=== PATIENT | male | born 1995 | race Caucasian/White ===

== ENCOUNTER 2019-10-02 11:06 | Emergency (ER) | payer OTHER ==
--- NOTE | 2019-10-02 11:48 | EDM.PDOC ---
ED HPI GENERAL MEDICAL PROBLEM - General Chief Complaint: Lower Extremity Injury/Pain Stated Complaint: RIGHT KNEE INJURY Time Seen by Provider: 10/02/19 11:07 Source of Information: Reports: Patient, Family History Limitations: Reports: No Limitations - History of Present Illness INITIAL COMMENTS - FREE TEXT/NARRATIVE: Patient presents with a right knee injury. He was working Last night and he got his right knee caught between 2 Perez when the cow pushed into it causing him to have a deep bruising and injury to the knee. Initially is able to walk on it however overnight he has iced it elevated and again ibuprofen however more bruising noted and is more swollen. He can't fully bend or fully extend his knee. Otherwise no other injury associated with it. No history of any past knee problems. Other than orthopedic type injuries patient has been healthy. Onset: Sudden Onset Date: 10/01/19 Duration: Day(s):, Getting Worse Location: Reports: Upper Extremity, Right Quality: Reports: Ache Severity: Moderate Improves with: Reports: Cold Therapy Worsens with: Reports: Movement Context: Reports: Activity Associated Symptoms: Denies: Fever/Chills, Nausea/Vomiting, Rash Treatments [employer]GER [employer]: Reports: NSAIDS Right Knee Pain Score (Numeric/FACES): 2 - Related Data Allergies Allergy/AdvReac Type Severity Reaction Status Date / Time No Known Allergies Allergy Verified 10/02/19 11:18 [facility] Home Meds: Home Meds Acetaminophen/HYDROcodone [Hamilton 325-5 MG] 1 tab PO Q6H PRN #8 tablet 10/02/19 [ Rx] Naproxen [Naprosyn] 500 mg PO BID PRN #20 tablet 10/02/19 [Rx] Past Medical History Respiratory History: Reports: Asthma - Past Surgical History HEENT Surgical History: Reports: Myringotomy w Tube(s) GI Surgical History: Reports: Appendectomy Social & Family History - Family History Family Medical History: Noncontributory - Tobacco Use Smoking Status *Q: Current Every Day Smoker Years of Tobacco use: 7 Packs/Tins Daily: 0.5 Second Hand Smoke Exposure: Yes - Caffeine Use Caffeine Use: Reports: Coffee, Energy Drinks, Soda - Alcohol Use Days Per Week of Alcohol Use: 7 Number of Drinks Per Day: 1 Total Drinks Per Week: 7 Date of Last Drink: 10/01/19 Time of Last Drink: 22:00 - Recreational Drug Use Recreational Drug Use: No - Living Situation & Occupation Living situation: Reports: Single, with Family Occupation: Employed ([employer], [place]) Review of Systems - Review of Systems Review Of Systems: See Below Respiratory: Reports: No Symptoms Cardiovascular: Reports: No Symptoms Musculoskeletal: Reports: Joint Pain, Joint Swelling, Muscle Pain Skin: Reports: Bruising Neurological: Reports: Gait Disturbance. Denies: Headache, Numbness, Paresthesia, Tingling Psychiatric: Reports: No Symptoms ED EXAM, GENERAL - Physical Exam Exam: See Below Exam Limited By: No Limitations General Appearance: Alert, WD/WN, No Apparent Distress Peripheral Pulses: 2+: Posterior Tibial (R), Dorsalis Pedis (R) Extremities: Joint Swelling, Leg Pain, Limited Range of Motion, Other (A lot of bruising discoloration noted of the right lateral aspect has some bruising posteriorly that comes across and then on the medial side of his knee has quite a bit of extensive bruising swelling and discoloration. Has some early mild swelling to the proximal part of the calf and distal part of the inner thigh. All dorsalis pedis and posterior tibial pulses are intact. Cap refill and normal sensation is normal. Range motion is markedly diminished in full flexion and only gets to about 30 and extension is only able to get to only about 160. ) Neurological: Alert, Oriented Skin Exam: Warm, Dry Course - Vital Signs Text/Narrative:: Examination, x-rays, ultrasound, rule out for DVT, fracture, suspect more of a soft tissue injury with contusion crush injury and bruising. Seems unlikely acute compartment syndromes, rule out major ligamentous disruption Last Recorded V/S: Last Vital Signs Temp 98.4 F 10/02/19 11:19 [facility] Pulse 121 H 10/02/19 11:19 MST Resp 20 10/02/19 11:19 MST BP 156/101 H 10/02/19 11:19 [facility] Pulse Ox 99 10/02/19 11:19 MST - Orders/Labs/Meds Orders: Active Orders 24 hr Category Date Time Status Knee wo Cont Rt [CT] Stat Exams 10/02/19 11:53 Taken DME for Discharge [COMM] Stat Oth 10/02/19 12:48 Ordered Meds: Medications Discontinued Medications Generic Name Dose Route Start Last Admin Trade Name Freq PRN Reason Stop Dose Admin Acetaminophen 650 mg 10/02/19 11:58 MST 10/02/19 12:04 MST Tylenol PO 10/02/19 11:59 MST 650 mg NOW ONE Administration Ibuprofen 600 mg 10/02/19 11:54 MST 10/02/19 13:19 MST Motrin PO 10/02/19 11:55 MST Not Given ONETIME ONE - Radiology Interpretation Free Text/Narrative:: 4 views of the right knee demonstrated no acute fracture dislocation. There is soft tissue swelling noted. No major effusion noted. - Re-Assessments/Exams Free Text/Narrative Re-Assessment/Exam: 10/02/19 11:52 Reviewed the x-ray films with the patient however still has exquisite tenderness. Will set up for CT scan to better delineate to make sure there is no underlying tibial plateau fracture or other Free Text/Narrative Re-Assessment/Exam: 10/02/19 12:45 CT scan initial impression is no acute duplex of fracture or bony injury and a lot of soft tissue swelling is noted. Recheck examination the patient and he is difficult to get a good ligamentous testing although no gross accident D to the medial lateral collateral ligaments. He is just heading to ultrasound to rule out DVT. Negative Will place patient with an Neto wrap, crutches weightbearing as tolerated, anti-inflammatories, rest, will recommend follow-up in the next 2 days, return precautions reviewed. Free Text/Narrative Re-Assessment/Exam: 10/02/19 13:43 Lower extremity ultrasound is negative for DVT. 10/02/19 21:02 Doubt any signs for department syndrome. Patient given strict restrictions for activity, Neto wrap, crutches weightbearing as tolerated, keep elevated, follow- up with orthopedist this week. Reviewed with patient signs and symptoms for compartment syndrome and to return if any of those type symptoms were to occur. Departure - Departure Time of Disposition: 13:43 Disposition: Home, Self-Care 01 Condition: Fair Clinical Impression: Contusion of knee - Discharge Information *PRESCRIPTION DRUG MONITORING PROGRAM REVIEWED*: Not Applicable *COPY OF PRESCRIPTION DRUG MONITORING REPORT IN PATIENT MARIAELENA: Not Applicable Prescriptions: Acetaminophen/HYDROcodone [[place] 325-5 MG] 1 tab PO Q6H PRN #8 tablet PRN Reason: Pain (Severe 7-10) Naproxen [Naprosyn] 500 mg PO BID PRN #20 tablet PRN Reason: Pain (Moderate 4-6) Instructions: Cryotherapy, [id number], Contusion, [id number] Referrals: Carola Stevens [Other] - 2 Days (Call tomorrow for a follow-up appointment hopefully in [place]) Forms: ED Department Discharge Additional Instructions: Rest, ice, start warm moist heat tomorrow, elevate, ibuprofen for pain. Follow-up for recheck evaluation and 2-3 days. Return sooner if any signs of increasing swelling, increasing pain, redness, numbness or tingling, worse - My Orders Last 24 Hours: My Active Orders 10/02/19 11:53 Knee wo Cont Rt [CT] Stat 10/02/19 12:48 DME for Discharge [COMM] Stat - Assessment/Plan Last 24 Hours: My Active Orders 10/02/19 11:53 Knee wo Cont Rt [CT] Stat 10/02/19 12:48 DME for Discharge [COMM] Stat
[2019-10-02] MEDS ORDERED: Ibuprofen 600 MG Tab PO ONE (11:54)
[2019-10-02] MEDS ORDERED: Acetaminophen 325 MG Tab PO ONE (11:58)
--- NOTE | 2019-10-02 13:30 | US ---
Right lower extremity deep venous ultrasound: Duplex and color flow imaging was obtained of the right common femoral, proximal greater saphenous, superficial femoral, popliteal, posterior tibial peroneal veins. Left common femoral vein was also evaluated. Findings: Normal phasic flow, augmentation and compression is seen. Impression: 1. No evidence of deep venous thrombosis within the right lower extremity or within the left common femoral vein. Diagnostic code #1
--- NOTE | 2019-10-02 16:00 | CR ---
Right knee: Four views of the right knee were obtained. Comparison: No previous right knee study. Medial and lateral joint spaces are maintained in height. No joint effusion is seen. No acute fracture or other bony abnormality is identified. Impression: 1. No abnormality is appreciated on right knee exam. Diagnostic code #1
--- NOTE | 2019-10-03 07:24 | CT ---
CT right knee Technique: Multiple axial sections through the knee were obtained. Reconstructed coronal and sagittal images were obtained. Findings: Minimal subcutaneous edema is seen. No joint effusion is seen. No fracture is identified. Impression: 1. Mild subcutaneous edema. 2. No acute bony abnormality is appreciated. 2. If patient symptoms are persistent, recommend MRI to evaluate for internal derangement. Diagnostic code #2 MTDD
== END 2019-10-02 13:50 | disposition home or self-care (01) ==
LOC: JD.ED 11:06
DX: S80.01XA Contusion of right knee, initial encounter (principal); F17.210 Nicotine dependence, cigarettes, uncomplicated; W23.0XXA Caught, crushed, jammed, or pinched between moving objects, initial encounter
CPT/HCPCS: 73564; 73700; 93971; 99284; A9270; 99283

== ENCOUNTER 2025-01-15 22:38 | Emergency (ER) | payer BC, OTHER ==
[2025-01-16] MEDS: Acetaminophen 325 MG Tab PO ONE (00:25)
[2025-01-16] MEDS: Ibuprofen 800 MG Tab PO ONE (00:25)
== END 2025-01-16 01:08 | disposition home or self-care (01) ==
LOC: JD.ED 22:38
DX: S82.64XA Nondisplaced fracture of lateral malleolus of right fibula, initial encounter for closed fracture (principal); Z90.49 Acquired absence of other specified parts of digestive tract; X50.1XXA Overexertion from prolonged static or awkward postures, initial encounter
CPT/HCPCS: 73600; 99283; A9270

== ENCOUNTER 2025-01-17 12:33 | Emergency (ER) | payer BC ==
[2025-01-17] MEDS ORDERED: Sodium Chloride 0.9% 10 ML Syringe FLUSH PRN (13:14)
[2025-01-17] MEDS: HYDROmorphone 0.5 MG/0.5 ML Syringe IVPUSH ONE ×3 (13:38→15:13)
[2025-01-17] MEDS: Propofol 200 MG/20 ML SDV IVPUSH ONE (13:54)
== END 2025-01-17 16:00 | disposition home or self-care (01) ==
LOC: JD.ED 12:33
DX: S82.841A Displaced bimalleolar fracture of right lower leg, initial encounter for closed fracture (principal); S93.04XA Dislocation of right ankle joint, initial encounter; F17.210 Nicotine dependence, cigarettes, uncomplicated; Z79.899 Other long term (current) drug therapy; W00.0XXA Fall on same level due to ice and snow, initial encounter; Y93.89 Activity, other specified
CPT/HCPCS: 27840; 73600; 96374; 96376; 99152; 99283; J2704

== ENCOUNTER 2025-01-23 09:51 | Day surgery (SDC) | payer BC ==
[2025-01-23] MEDS: Lactated Ringers 1,000 ML IV SCH (09:30)
[2025-01-23] MEDS: HYDROmorphone 1 MG/ML Syringe IVPUSH ONE (09:47)
[~2025-01-23 09:51] MED LIST: Dexamethasone 4 MG/ML 5 ML MDV ONE; Midazolam 1 MG/ML 2 ML SDV ONE; Ondansetron 4 MG/2 ML SDV ONE; Ropivacaine 0.5% 5 MG/ML 30 ML SDV ONE; Sodium Chloride 0.9% 10 ML Syringe FLUSH PRN; Sodium Chloride 0.9% 10 ML Syringe FLUSH SCH; dexmedeTOMIDine HCl 200 MCG/2 ML SDV ONE; fentaNYL 250 MCG/5 ML SDV ONE
[2025-01-23] MEDS ORDERED: Propofol 200 MG/20 ML SDV ONE ×2 (10:18→10:54)
[2025-01-23] MEDS ORDERED: ceFAZolin 2 GM Vial ONE (10:56)
[2025-01-23] MEDS ORDERED: HYDROmorphone 0.5 MG/0.5 ML Syringe ONE ×4 (11:07→11:54)
[2025-01-23] MEDS ORDERED: Ondansetron 4 MG/2 ML SDV IVPUSH PRN (11:26)
[2025-01-23] MEDS ORDERED: HYDROmorphone 0.5 MG/0.5 ML Syringe IVPUSH PRN (11:26)
[2025-01-23] MEDS ORDERED: Ketorolac 30 MG/ML SDV ONE (11:58)
[2025-01-23] MEDS: fentaNYL 100 MCG/2 ML SDV IVPUSH PRN (12:44)
[2025-01-23] MEDS: Acetaminophen/HYDROcodone 325-5 MG Tab PO PRN (13:41)
== END 2025-01-23 14:28 | disposition home or self-care (01) ==
LOC: JD.SDS 09:51
PROVIDERS: ATTEND Orthopaedic Surgery
DX: S82.841A Displaced bimalleolar fracture of right lower leg, initial encounter for closed fracture (principal); J45.909 Unspecified asthma, uncomplicated; F17.290 Nicotine dependence, other tobacco product, uncomplicated; X58.XXXA Exposure to other specified factors, initial encounter
CPT/HCPCS: 27814; 76000; A9270; J0690; J1100; J1171; J1885; J2250; J2405; J2704; J2795; J3010; J7120; 01480; 64450; C1713; C1769; C1776